=== PATIENT | female | born 1995 | race Caucasian/White ===

== ENCOUNTER 2022-04-26 16:06 | Emergency (ER) | payer BC ==
[2022-04-26 16:27] VITALS: BP 121/82; RESP 18; TEMP 97.8; BMI 23.0
[2022-04-26] MEDS ORDERED: SODIUM CHLORIDE 0.9% 500 ML INFUS.BAG IV ONE (16:46)
[2022-04-26] MEDS ORDERED: KETOROLAC TROMETHAMINE 30 MG/1 ML VIAL IVPUSH ONE (17:17)
[2022-04-26 18:04] LABS: EPI CELLS 31 /uL (0-25.1); HCG,QUALITATIVE URINE Negative; HYALINE CASTS 1 /uL (0-3.1); URINE APPEARANCE CLEAR; URINE BACTERIA 1030 /uL (0-1359); URINE BILIRUBIN NEGATIVE (NEGATIVE); URINE COLOR YELLOW; URINE GLUCOSE (UA) NEGATIVE (NEGATIVE); URINE KETONE TRACE (NEGATIVE); URINE LEUK ESTERASE NEGATIVE (NEGATIVE); URINE NITRITE NEGATIVE (NEGATIVE); URINE PROTEIN NEGATIVE (NEGATIVE); URINE RBC 20 /uL (0-23.9); URINE UROBILINOGEN 0.2 mg/dL (0.2-1.0); URINE WBC 11 /uL (0-25.8)
[2022-04-26 18:05] LABS: BASO % 0.3 % (0-2.0); EOS % 0.4 % (0-4.5); HEMATOCRIT 36.4 % (32.4-45.2); HEMOGLOBIN 12.9 GM/dL (10.7-15.3); LYMPH % 11.1 % (8-40); MCH 30.6 pg (25.7-33.7); MCHC 35.4 g/dl (32.0-36.0); MEAN CELL VOLUME 86.3 fl (80-96); NEUT % 79.2 % (42.8-82.8); PLATELET COUNT 433 10^3/uL (134-434); RBC 4.21 M/mm3 (3.60-5.2); RDW 12.3 % (11.6-15.6); WHITE BLOOD COUNT 8.4 K/mm3 (4.0-10.0)
[2022-04-26 18:35] LABS: INR 1.1 (0.83-1.09); PROTHROMBIN TIME (PATIENT) 12.7 SEC (9.7-13.0)
[2022-04-26 18:43] LABS: ALBUMIN 3.8 g/dl (3.4-5.0); BLOOD UREA NITROGEN 6.3 mg/dL (7-18)
[2022-04-26 18:46] LABS: CREATININE 0.7 mg/dL (0.55-1.3)
[2022-04-26 18:48] LABS: TOT PROT 7.2 g/dl (6.4-8.2)
[2022-04-26 21:45] VITALS: PULSE 96
== END 2022-04-26 20:47 | disposition home or self-care (01) ==
LOC: JER 16:06
DX: R07.1 Chest pain on breathing (principal); R07.81 Pleurodynia
CPT/HCPCS: 0241U-QW; 36415; 71275-TC; 80053; 81003; 84443; 84484; 84703; 85025; 85610; 87086; 93005; 93010; 99285-25